=== PATIENT | male | born 1955 | race Caucasian/White ===

== ENCOUNTER 2022-09-15 18:04 | Outpatient (CLI) | payer MEDICARE, SELFPAY | END 2022-09-15 18:05 | disposition home or self-care (01) | LOC: AMB 09-16 13:51 | PROVIDERS: PCP Family Medicine; Visit Provider Family Medicine | DX: R42 Dizziness and giddiness (principal) | CPT/HCPCS: A0425; A0427 ==

== ENCOUNTER 2022-09-15 18:45 | Inpatient (IN) | payer MEDICARE, SELFPAY ==
[2022-09-15] VITALS (21 sets, daily range): BP systolic 137–189; BP diastolic 91–119; PULSE 64–75; RESP 16–18; TEMP 36.5; O2SAT 90–99; BMI 40.6; BMI 38.9
--- NOTE | 2022-09-15 18:54 | CRLHL7_ITS ---
For Patients: As a result of the Century Cures Act, medical imaging exams and procedure reports are released immediately into your electronic medical record. You may view this report before your referring provider. If you have questions, please contact your health care provider. INDICATION: Head injury from fall TECHNIQUE: CT Head without i.v. contrast. Coronal and sagittal reformats were obtained. COMPARISON: None FINDINGS: CSF space: Unremarkable for age. Brain: No evidence of mass, acute infarction or hemorrhage is seen. No mass-effect or midline shift is seen. Mild diffuse cortical atrophy is noted. The brain parenchyma is otherwise normal in appearance with preservation of the long-white matter junction. Calvarium: The visualized paranasal sinuses are well aerated. The mastoid air cells are clear. The visualized orbits are grossly unremarkable. The calvarium is unremarkable in appearance with no fractures identified. IMPRESSION: 1. No evidence of acute infarction, intracranial hemorrhage, or mass-effect seen. Please note that all CT scans at this facility use dose modulation, iterative reconstruction, and/or weight-based dosing when appropriate to reduce radiation dose to as low as reasonably achievable. Dictated by: Geovanny Arias MD @ 09/15/2022 20:31:38 (Electronically Signed)
--- NOTE | 2022-09-15 18:55 | CT_ITS ---
Patient: DENAE FAUSTIN Facility:?[facility] RIS Patient ID:?[id number] Site Patient ID:?[id number]. Site :?[id number] Study:?CT-Head Angio STROKE PROTOCOL W/95CC IOSVUE 370 NON-09/15/2022 8:33:45 PM Ordering Physician:Kendra Urbina Final Report: DATE: 09/15/2022 CLINICAL HISTORY: Patient with focal neurological deficits. TECHNIQUE: Standard helical CT image acquisition through the intracranial circulation following intravenous administration of contrast material with bolus tracking. Multiplanar reconstructed images were performed and interpreted. COMPARISON: CT same day. FINDINGS: There is no cerebral aneurysm or large vessel occlusion. The right internal carotid artery is normal. The right middle cerebral artery and its branches are normal. The right anterior cerebral artery and its branches are normal. The left internal carotid artery is normal. The left middle cerebral artery and its branches are normal. The left anterior cerebral artery and its branches are normal. The anterior communicating artery is well visualized and appears normal. The right vertebral artery and PICA are normal. The left vertebral artery and PICA are normal. The right vertebral artery is dominant. The basilar artery is patent and appears normal. The right posterior cerebral artery is normal. The left posterior cerebral artery is normal. The visualized venous structures are patent. IMPRESSION: Normal CT angiogram of the head without intracranial aneurysm or other neurovascular abnormality. Please note that all CT scans at this facility use dose modulation, iterative reconstruction, and/or weight-based dosing when appropriate to reduce radiation dose to as low as reasonably achievable. Dictated by Brendan Tidwell MD @ 09/16/2022 9:42:34 AM Signed by:?Brendan Tidwell MD @09/16/2022 9:42:34 AM (Electronic Signature)
[2022-09-15] MEDS: LORazepam 2 MG/ML inj 1 MG IVP (19:26)
[2022-09-15] MEDS: ONDANSETRON 2 MG/ML inj 4 MG IVP (19:26)
[2022-09-15 19:28] LABS: Basophils Percent Auto 0.1 % (0.0-3.0); Eosinophils Percent Auto 0.2 % (0.0-7.0); Hemoglobin* 15.7 gm/dL (13.5-17.5); Immature Granulocytes Pct Auto 0.3 %; Lymphocytes Percent Auto 10.3 % (20-44); Mean Corpuscular HGB Conc 33 gm/dL (32-36); Mean Corpuscular Hemoglobin 28 pg (26-34); Mean Corpuscular Volume 84 fL (80-100); Monocytes Percent Auto 5.6 % (0.0-11.0); Neutrophils Percent Auto 83.5 % (42.0-72.0); Platelet Count* 240 K/uL (140-440); RDW Coefficient of Variation % 14.5 % (11.5-15.5); Red Blood Count 5.69 m/uL (4.30-5.90)
[2022-09-15 19:40] LABS: Troponin, Point-of-Care* 0.01 ng/ml (0.01-0.04)
[2022-09-15 19:53] LABS: Slide Review Reflex No
[2022-09-15 19:58] LABS: Albumin* 4.5 g/dL (3.3-5.0); Chloride* 108 mmol/L (96-114); Sodium* 141 mmol/L (135-149)
[2022-09-15 19:59] LABS: Potassium* 3.7 mmol/L (3.6-5.1)
[2022-09-15 20:00] LABS: Creatinine* 0.7 mg/dL (0.5-1.5); Est. Creatinine Clearance* 63.21; Estimated Glomerular Filt Rate 102 ml/min; INR 0.99 (0.91-1.10); Prothrombin Time 13.7 Seconds
[2022-09-15 20:01] LABS: Alkaline Phosphatase* 77 U/L (40-150); Aspartate Amino Transferase* 28 U/L (12-35); Bilirubin Total* 1.4 mg/dL (0.1-1.5); Blood Urea Nitrogen* 13 mg/dL (7-30); Carbon Dioxide* 26 mmol/L (20-32); Partial Thromboplastin Time* 31 Seconds (23-33); Total Protein* 7.8 g/dL (6.0-8.3)
[2022-09-15 20:02] LABS: Alanine Aminotransferase* 37 U/L (4-50); Calcium* 9.1 mg/dL (8.4-10.6); Glucose* 135 mg/dL (60-115)
[2022-09-15 20:04] LABS: C Reactive Protein* 0.5 mg/dL (0.5-1.0)
[2022-09-15 20:08] LABS: PCR FLU A Negative PCR FLU A (Negative); PCR FLU B Negative PCR FLU B (Negative); PCR RSV Negative PCR RSV (Negative)
[2022-09-15 20:26] LABS: SARS PCR* Negative SARS-CoV-2 (Negative)
--- NOTE | 2022-09-15 20:27 | ED.GENADULT ---
HPI - General Adult General Date Seen: 09/15/22 Chief complaint: Dizziness/Vertigo Stated complaint: Dizzy Time Seen by Provider: 09/15/22 18:53 Source: patient History of Present Illness HPI narrative: Patient is a 66-year-old male who comes in by ambulance for re-evaluation of vertigo. He was seen in clinic earlier today and reports that he had a brain scan which he was told was normal. He says that he woke up yesterday morning feeling okay but shortly thereafter developed sudden onset of spinning/movement sensation. Did not have headache. He also says the left side of his face feels numb or funny, he is having difficulty swallowing. He denies any difficulty with numbness or weakness in his arms or legs, although he does say that when the paramedics wanted to get him to walk his legs ?would not work. This I think is referring to the fact that he was having difficulty walking. Medics related that he was listing to the side. They did not note any other findings on exam. Patient denies any history of previous stroke or heart attack. He does have a history of high cholesterol. He denies changes in his hearing or speech. Related Data Home Medications Medication Instructions Recorded Confirmed cholecalciferol (vitamin D3) 50 4,000 unit PO DAILY 09/15/22 09/15/22 mcg (2,000 unit) tablet (Vitamin D3) lovastatin 40 mg tablet 40 mg PO DAILY 09/15/22 09/15/22 magnesium 200 mg tablet 200 mg PO DAILY 09/15/22 09/15/22 multivitamin 1 tab PO DAILY 09/15/22 09/15/22 Allergies Allergy/AdvReac Type Severity Reaction Status Date / Time amoxicillin Allergy Verified 09/15/22 18:55 codeine Allergy Verified 09/15/22 18:55 Review of Systems Status of ROS: Reports: 10 or more systems reviewed and unremarkable except as noted in History and below Exam Narrative: Exam Narrative: Vital signs as noted above. In general, an alert, nontoxic male. He is lying in bed with his eyes closed. Head: Normocephalic, atraumatic. Eyes: Left pupil is 2 mm and reactive. Right pupil is 4 mm and reactive. There is a slight left ptosis. Conjunctivae are normal. Extraocular movements are full with significant leftward beating nystagmus at rest and with leftward gaze. Extinguishes with rightward gaze. ENT: Mucous membranes are moist. Throat is normal. Neck: Supple without lymphadenopathy. Nontender to palpation. No bruits. Heart: Regular rate and rhythm. No murmur or rub. Lungs: Clear bilaterally. No increased work of breathing, crackles or wheezes. Abdomen: Soft and nontender. No organomegaly. Extremities: Well perfused. No edema. No calf tenderness. Pulses intact. Neurologic: Patient is alert and oriented to person and place. Speech is fluent. Face is symmetric. Facial sensation is symmetric bilaterally. Moves all extremities equally. Strength is 5 of 5 in bilateral upper and lower extremities. Sensation is intact to light touch. Finger-nose testing shows some ataxia particularly with the left hand although he improves with practice. Affect: Flat. Skin: Warm and dry. Well perfused. Const: Vital Signs, click to edit/add: Vital Signs - 24 hr 09/15/22 19:07 09/15/22 19:25 09/15/22 19:44 Temperature 97.7 F Pulse Rate 73 Pulse Rate [Right Pulse Oximeter] 75 Respiratory Rate 18 Blood Pressure Blood Pressure [Ri ght Upper Arm] 189/119 H Pulse Oximetry 96 96 92 Oxygen Delivery Me thod Room Air 09/15/22 19:56 09/15/22 20:00 09/15/22 20:02 Temperature Pulse Rate 71 70 71 Pulse Rate [Right Pulse Oximeter] Respiratory Rate Blood Pressure 148/93 H 137/91 H Blood Pressure [Ri ght Upper Arm] Pulse Oximetry 92 92 90 Oxygen Delivery Me thod Course Course Hospital Course: I reviewed his [facility] chart that the nurse gave me, he did have a CT scan done which was read as negative. I am concerned about a central cause for his vertigo. While it is worse with movement, he has other exam findings which are concerning. CT angiogram is pending. White blood cell count is mildly elevated at 11.6, hemoglobin is normal. Platelets are 240,000. Metabolic panel is normal, blood sugars 135. LFTs normal. COVID, influenza, RSV negative. Point of care troponin is 0.01. An EKG by my review showed a normal sinus rhythm, ventricular rate of 70. No acute ST segment changes. CT angiogram of the head and neck is read by Radiology as showing a little bit of plaque in the proximal internal carotids bilaterally otherwise negative. Head CT again read as negative. Patient was markedly hypertensive on arrival, this has down without intervention. Did trying given an aspirin here but he is having difficulty swallowing and at this point he has not had an aspirin. I spoke with Dr. Adler at [facility] who was on-call for Neurology. My concern is for stroke at this point, I think mass or other structural abnormality is less likely. I think hemorrhages been adequately ruled out. I do think that peripheral vertigo is unlikely at this point with patient's other neurologic findings. I have recommended admission to the hospital. There are no beds available in the [facility] area including all [facility]. I do not have the ability to do an MRI tonight, and Dr. Adler thinks it is okay to wait until tomorrow morning. He did not feel that it was important to force the issue of the aspirin. Does not recommended any further medications at present. Patient has been stable. I gave him Zofran and Ativan, nystagmus is a little bit improved, nausea somewhat improved although he still feels fairly vertiginous. No change in neurologic symptoms otherwise. Vital Signs Vital signs: Initial Vital Signs Temperature 97.7 F 09/15/22 19:07 Temperature Source Temporal Artery Scan 09/15/22 19:07 Pulse Rate 75 09/15/22 19:07 Respiratory Rate 18 09/15/22 19:07 Blood Pressure 189/119 H 09/15/22 19:07 Blood Pressure Mean 142 09/15/22 19:07 Blood Pressure Position Sitting 09/15/22 19:07 Pulse Oximetry 96 09/15/22 19:07 Oxygen Delivery Method 09/15/22 19:07 Vital Signs Temperature 97.7 F 09/15/22 19:07 Pulse Rate 75 09/15/22 19:07 Respiratory Rate 18 09/15/22 19:07 Blood Pressure 189/119 H 09/15/22 19:07 Pulse Oximetry 96 09/15/22 19:07 Oxygen Delivery Method 09/15/22 19:07 Temperature 97.7 F 09/15/22 19:07 Pulse Rate 71 09/15/22 20:02 Respiratory Rate 18 09/15/22 19:07 Blood Pressure 137/91 H 09/15/22 20:02 Pulse Oximetry 90 09/15/22 20:02 Oxygen Delivery Method 09/15/22 19:07 Medical Decision Making Lab Data Labs: Lab Results 09/15/22 09/15/22 09/15/22 Range/Units 19:20 19:20 19:20 WBC 11.60 H (4.50-11.00) K/uL RBC 5.69 (4.30-5.90) m/uL Hgb 15.7 (13.5-17.5) gm/dL Hct 48.0 (37.0-53.0) % MCV 84 (80-100) fL MCH 28 (26-34) pg MCHC 33 (32-36) gm/dL RDW Coeff of Junaid 14.5 (11.5-15.5) % Plt Count 240 (140-440) K/uL Neut % (Auto) 83.5 H (42.0-72.0) % Lymph % (Auto) 10.3 L (20-44) % [place] % (Auto) 5.6 (0.0-11.0) % Eos % (Auto) 0.2 (0.0-7.0) % Baso % (Auto) 0.1 (0.0-3.0) % Neut # (Auto) 9.70 H (1.7-7.0) K/uL Lymph # (Auto) 1.20 (0.90-2.90) K/uL [place] # (Auto) 0.60 (0.00-0.90) K/UL Eos # (Auto) 0.00 (0.00-0.50) K/uL Baso # (Auto) 0.00 (0.00-0.30) K/uL INR (0.91-1.10) APTT (23-33) Seconds Sodium 141 (135-149) mmol/L Potassium 3.7 (3.6-5.1) mmol/L Chloride 108 (96-114) mmol/L Carbon Dioxide 26 (20-32) mmol/L BUN 13 (7-30) mg/dL Creatinine 0.7 (0.5-1.5) mg/dL Estimated Creat Clear 63.21 Estimated GFR 102 ml/min Glucose 135 H (60-115) mg/dL Calcium 9.1 (8.4-10.6) mg/dL Total Bilirubin 1.4 (0.1-1.5) mg/dL Direct Bilirubin 0.0 (0.0-0.5) mg/dL AST 28 (12-35) U/L ALT 37 (4-50) U/L Alkaline Phosphatase 77 (40-150) U/L C-Reactive Protein 0.5 (0.5-1.0) mg/dL Total Protein 7.8 (6.0-8.3) g/dL Albumin 4.5 (3.3-5.0) g/dL SARS-CoV-2 (PCR) Negative SARS-CoV-2 (Negative) Influenza Type A (PCR) Negative PCR FLU A (Negative) Influenza Type B (PCR) Negative PCR FLU B (Negative) RSV (PCR) Negative PCR RSV (Negative) POC Troponin I (0.01-0.04) ng/ml 09/15/22 09/15/22 Range/Units 19:20 19:20 WBC (4.50-11.00) K/uL RBC (4.30-5.90) m/uL Hgb (13.5-17.5) gm/dL Hct (37.0-53.0) % MCV (80-100) fL MCH (26-34) pg MCHC (32-36) gm/dL RDW Coeff of Junaid (11.5-15.5) % Plt Count (140-440) K/uL Neut % (Auto) (42.0-72.0) % Lymph % (Auto) (20-44) % [place] % (Auto) (0.0-11.0) % Eos % (Auto) (0.0-7.0) % Baso % (Auto) (0.0-3.0) % Neut # (Auto) (1.7-7.0) K/uL Lymph # (Auto) (0.90-2.90) K/uL [place] # (Auto) (0.00-0.90) K/UL Eos # (Auto) (0.00-0.50) K/uL Baso # (Auto) (0.00-0.30) K/uL INR 0.99 (0.91-1.10) APTT 31 (23-33) Seconds Sodium (135-149) mmol/L Potassium (3.6-5.1) mmol/L Chloride (96-114) mmol/L Carbon Dioxide (20-32) mmol/L BUN (7-30) mg/dL Creatinine (0.5-1.5) mg/dL Estimated Creat Clear Estimated GFR ml/min Glucose (60-115) mg/dL Calcium (8.4-10.6) mg/dL Total Bilirubin (0.1-1.5) mg/dL Direct Bilirubin (0.0-0.5) mg/dL AST (12-35) U/L ALT (4-50) U/L Alkaline Phosphatase (40-150) U/L C-Reactive Protein (0.5-1.0) mg/dL Total Protein (6.0-8.3) g/dL Albumin (3.3-5.0) g/dL SARS-CoV-2 (PCR) (Negative) Influenza Type A (PCR) (Negative) Influenza Type B (PCR) (Negative) RSV (PCR) (Negative) POC Troponin I 0.01 (0.01-0.04) ng/ml Discharge Plan Discharge Prescriptions: No Action cholecalciferol (vitamin D3) [Vitamin D3] 50 mcg (2,000 unit) tablet 4,000 unit PO DAILY lovastatin 40 mg tablet 40 mg PO DAILY magnesium 200 mg tablet 200 mg PO DAILY multivitamin Tablet 1 tab PO DAILY Follow Up/Referrals: Davey Davis MD [Primary Care Provider] -
--- NOTE | 2022-09-15 21:45 | ED.NURSE ---
Heads up given to HS
--- NOTE | 2022-09-15 21:46 | W.PC.EDHO ---
Primary Language: Preferred Language: Orientation Status: [x] Alert & Oriented [] Slight Confusion [] Known Dx Dementia Transfers By: [x] Assist of 1 [] Assist of 2 [] Lift Active Medications Discontinued Medications Generic Name Dose Route Start Last Admin Trade Name Freq PRN Reason Stop Dose Admin Lorazepam 1 mg 09/15/22 18:55 09/15/22 19:26 Lorazepam 2 Mg/Ml Inj IVP 09/15/22 18:56 1 mg ONCE ONE Administration Ondansetron HCl 4 mg 09/15/22 18:55 09/15/22 19:26 Ondansetron 2 Mg/Ml Inj IVP 09/15/22 18:56 4 mg ONCE ONE Administration Description of Symptoms ED Triage Present Problem pt here for dizziness since yesterday am, was seen Description at [facility] by Apple Pimentel today and head CT done, pt was told it was negative ED Triage Date of Onset of 09/14/22 Symptoms Female History Patient IV Insertion/Site Date of IV Line Insertion [ 09/15/22 Left Antecubital] Oxygen Administration Pulse Oximetry 90 Pulse Oximetry 92 Pulse Oximetry 92 Pulse Oximetry 92 Pulse Oximetry 96 Pulse Oximetry 96 Oxygen Delivery Method Room Air Cardiac Monitoring EKG Method 12 Lead
[2022-09-15] MEDS: SODIUM CHLORIDE 0.9 % (FLUSH) 10 ML SYRINGE 5 ML IVF (23:49)
[2022-09-16] VITALS (8 sets, daily range): BP systolic 128–157; BP diastolic 76–118; PULSE 61–78; RESP 16–18; TEMP 36.1–36.8; O2SAT 94–99
[2022-09-16 00:09] LABS: Appearance Urine Clear (Clear); Bilirubin Urine Negative (Negative); Blood Urine Trace-intact (Negative); Color Urine Yellow (Yellow); Glucose Urine Negative (Negative); Ketones Urine Negative (Negative); Leukocyte Esterase Urine Negative (Negative); Nitrite Urine Negative (Negative); Protein Urine Negative (Negative); Urobilinogen Urine 0.2 (0.2-1.0)
--- NOTE | 2022-09-16 00:22 | P.IMCN_ITS ---
Date of Consult Consult date: 09/16/22 Primary Care Provider: Davey Davis MD Consult Narrative Narrative: Travis Wiley Hospitalist ADMISSION SUPPORT NOTE eHospitalist was contacted by Dr. Cam with request of admission support. Chief complaint: Unsteady gait with left facial numbness HPI: The patient reports that Wednesday morning while he was drinking a beer he suddenly felt funny like I had drunk 5-6 bottles of beer. He started having difficulty walking. His stomach then got upset and started having dry heaves. His nausea persisted since that time. Because of his symptoms he went into a clinic that evaluated him, perform CT scan of head which was negative and the patient was discharged. Wednesday he woke up from a nap and reports that everything was spinning around. He then noted that the left side of his face felt numb and he had difficulty swallowing. He reports that the room was just spinning around. Because of the persistence of his symptoms he decided to come in for evaluation. Per report Case discussed with neurology who recommends stroke work-up with MRI etc. Review of systems other mention above is negative Home Medications/Pertinent Medical History/Pertinent Social History: Reviewed see EMR for details [facility] Social History Highest level of school completed/degree received: high school graduate Smoking Status: Never smoker Do you use any of these nicotine containing products: None Second hand tobacco smoke exposure: No How often do you have a drink containing alcohol: 2-3 times a week Alcohol type: beer and hard liquor Alcohol type details: kendall How many standard drinks containing alcohol do you have on a typical day: 3 or 4 How often do you have six or more drinks on one occasion: Less than monthly AUDIT-C Alcohol total score: 5 Non-prescribed substance use: denies use Caffeine: Yes (occ coffee) service: No Meds Home Medications and Allergies Home Medications Medication Instructions Recorded Confirmed Type cholecalciferol (vitamin D3) 50 4,000 unit PO DAILY 09/15/22 09/15/22 History mcg (2,000 unit) tablet (Vitamin D3) lovastatin 40 mg tablet 40 mg PO HS 09/15/22 09/16/22 History magnesium 200 mg tablet 200 mg PO DAILY 09/15/22 09/15/22 History multivitamin 1 tab PO DAILY 09/15/22 09/15/22 History Allergies Allergy/AdvReac Type Severity Reaction Status Date / Time amoxicillin Allergy Verified 09/15/22 18:55 codeine Allergy Verified 09/15/22 18:55 Exam Narrative: Exam Narrative: Exam (performed via interactive video with assistance of bedside nurse): General: Alert, cooperative, no acute distress HEENT: Pupils reported irregular in size with right pupil appearing larger based on bedside nurse evaluation, oral mucosa pink and moist without erythema, left eye ptosis Lungs: Clear to auscultation bilaterally without crackle or wheeze CV: Regular rate and rhythm without loud murmur rub or gallop Ext: No pitting edema noted Skin: No rashes, bruises or lesions appreciated on gross visualization of exposed skin Neuro: Alert, oriented x 3. CN III -VII, XI, XII grossly intact except left ptosis, left facial numbness, and left facial droop, moves all extremities without any significant focal deficit appreciated by nurse, horizontal nystagmus noted with leftward beating Const: Vital Signs, click to edit/add: Vital Signs - 24 hr 09/15/22 19:07 09/15/22 19:25 09/15/22 19:44 Temperature 97.7 F Pulse Rate 73 Pulse Rate [Pulse Oximeter] Pulse Rate [Right Pulse Oximeter] 75 Respiratory Rate 18 Blood Pressure Blood Pressure [Ri ght Arm] Blood Pressure [Ri ght Upper Arm] 189/119 H Pulse Oximetry 96 96 92 Oxygen Delivery Me thod Room Air 09/15/22 19:56 09/15/22 20:00 09/15/22 20:02 Temperature Pulse Rate 71 70 71 Pulse Rate [Pulse Oximeter] Pulse Rate [Right Pulse Oximeter] Respiratory Rate Blood Pressure 148/93 H 137/91 H Blood Pressure [Ri ght Arm] Blood Pressure [Ri ght Upper Arm] Pulse Oximetry 92 92 90 Oxygen Delivery Me thod 09/15/22 23:04 09/15/22 20:03 09/15/22 20:22 Temperature Pulse Rate 71 73 Pulse Rate [Pulse Oximeter] 68 Pulse Rate [Right Pulse Oximeter] Respiratory Rate 16 Blood Pressure Blood Pressure [Ri ght Arm] 162/111 H Blood Pressure [Ri ght Upper Arm] Pulse Oximetry 99 92 97 Oxygen Delivery Me thod Room Air 09/15/22 20:32 09/15/22 20:40 09/15/22 21:00 Temperature Pulse Rate 74 67 65 Pulse Rate [Pulse Oximeter] Pulse Rate [Right Pulse Oximeter] Respiratory Rate Blood Pressure 168/105 H Blood Pressure [Ri ght Arm] Blood Pressure [Ri ght Upper Arm] Pulse Oximetry 91 98 95 Oxygen Delivery Me thod 09/15/22 21:02 09/15/22 21:20 09/15/22 21:32 Temperature Pulse Rate 66 66 67 Pulse Rate [Pulse Oximeter] Pulse Rate [Right Pulse Oximeter] Respiratory Rate Blood Pressure 161/107 H 165/97 H Blood Pressure [Ri ght Arm] Blood Pressure [Ri ght Upper Arm] Pulse Oximetry 95 96 98 Oxygen Delivery Me thod 09/15/22 21:40 09/15/22 22:00 09/15/22 22:02 Temperature Pulse Rate 69 66 68 Pulse Rate [Pulse Oximeter] Pulse Rate [Right Pulse Oximeter] Respiratory Rate Blood Pressure 168/107 H Blood Pressure [Ri ght Arm] Blood Pressure [Ri ght Upper Arm] Pulse Oximetry 97 97 96 Oxygen Delivery Nd thod 09/15/22 22:20 09/15/22 22:32 09/15/22 22:40 Temperature Pulse Rate 64 68 66 Pulse Rate [Pulse Oximeter] Pulse Rate [Right Pulse Oximeter] Respiratory Rate Blood Pressure 153/106 H Blood Pressure [Ri ght Arm] Blood Pressure [Ri ght Upper Arm] Pulse Oximetry 97 96 97 Oxygen Delivery Me thod Labs Labs: Short CBC 09/15/22 Range/Units 19:20 WBC 11.60 H (4.50-11.00) K/uL Hgb 15.7 (13.5-17.5) gm/dL Hct 48.0 (37.0-53.0) % Plt Count 240 (140-440) K/uL BMP 09/15/22 19:20 Sodium 141 Potassium 3.7 Chloride 108 Carbon Dioxide 26 BUN 13 Creatinine 0.7 Glucose 135 H Calcium 9.1 Liver Function 09/15/22 Range/Units 19:20 Total Bilirubin 1.4 (0.1-1.5) mg/dL Direct Bilirubin 0.0 (0.0-0.5) mg/dL AST 28 (12-35) U/L ALT 37 (4-50) U/L Alkaline Phosphatase 77 (40-150) U/L Albumin 4.5 (3.3-5.0) g/dL Urine 09/15/22 Range/Units 23:31 Urine Color Yellow (Yellow) Urine Appearance Clear (Clear) Urine pH 7.0 (5.0-8.5) Ur Specific [place] 1.010 (1.000-1.030) Urine Protein Negative (Negative) Urine Glucose (UA) Negative (Negative) Assessment and Plan Assessment and plan (1) Suspected cerebrovascular accident: Status: Acute Plan Recent lab/CT scan of head: Reviewed see EMR for details EKG: Per my interpretation showed normal sinus rhythm Assessment and Plan: 1. Concern for stroke versus TIA-rectal aspirin as the patient reports difficulty swallowing. MRI of brain. 2D echo with bubble. PT and OT evaluation. 2. Hypertension-allow permissive hypertension given concern for stroke 3. Leukocytosis-May be secondary to stress response. No signs or symptoms of active infection. Monitor 4. Hyperglycemia-check TSH 5. DVT prophylaxis-SCDs 6. CODE STATUS full code discussed with patient Chart review was performed as well as evaluation of the patient via video. Thank you for involving ehospitalist. Please contact [phone] if further assistance is needed.
[2022-09-16 00:40] LABS: RBC Urine 0-2 (0-2); WBC Urine 0-2 (0-5)
[2022-09-16] MEDS: ASPIRIN 300 MG SUPP PR (01:21)
[2022-09-16] MEDS: 0.9 % SODIUM CHLORIDE 1000 ml 1,000 ML 75 ML IV (01:21)
--- NOTE | 2022-09-16 05:38 | PC.NURSE ---
Pt arrived to floor approx 2350, unable to stand or walk. upon arrival pt c/o L facial numbness, unable to swallow. L pupil 2mm brisk reaction to light, R pupil 4mm brisk reaction to light, bilateral nystagmus and asymmetrical smile (weak on the L side). equal bilateral strength to upper and lower extremities. During 0300 vitals, pt smile symmetrical, stated numbness to L face is getting better and pt able to swallow a little better then earlier. Pt still unable to stand, states it feels like there's nothing there. Pt is able to feel nurse touching his feet. Pt slept well during night between cares/vitals. uses urinal with help. per nurse discretion pt NPO during night due to difficulty swallowing.
--- NOTE | 2022-09-16 07:00 | CRLHL7_ITS ---
For Patients: As a result of the Century Cures Act, medical imaging exams and procedure reports are released immediately into your electronic medical record. You may view this report before your referring provider. If you have questions, please contact your health care provider. INDICATION: Left leg weakness. Dizziness. TECHNIQUE: Brain MRI without contrast. The following sequences were obtained: Sagittal T1 weighted sequence. DWI and ADC mapping sequences. Axial FLAIR and SELVIN T2 weighted sequences. Susceptibility or GRE sequence. COMPARISON: Head CT from 09/15/2022. FINDINGS: Multiple contiguous or nearly contiguous foci of diffusion restriction/FLAIR hyperintensity within the left inferior cerebellar hemisphere, vermis, brachium pontis and dorsal lateral medulla, consistent with sites of recent ischemia, likely late acute to early subacute in age. The infarcts involve the left PICA distribution. No evidence of recent ischemia elsewhere within the brain. No evidence of acute or chronic intracranial blood products. Scattered FLAIR hyperintensities within the supratentorial white matter, typical for chronic microvascular ischemic change. No mass effect or herniation. No hydrocephalus or extra-axial collections. The pituitary gland, parasellar structures and optic chiasm are normal. All the major intracranial vascular structures demonstrate normal flow-related signal. The orbital contents are normal. No calvarial or skull base marrow replacing process. No obstructive sinus disease. No extracranial soft tissue findings. IMPRESSION: 1. 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 No recent ischemia and other vascular territories. 2. No intracranial hemorrhage. 3. Mild chronic microvascular ischemic changes within the supratentorial white matter. Dictated by Christos Esqueda MD @ 09/16/2022 12:44:07 PM (Electronically Signed)
[2022-09-16 07:25] LABS: Basophils Percent Auto 0.1 % (0.0-3.0); Eosinophils Percent Auto 0.4 % (0.0-7.0); Hematocrit 47.3 % (37.0-53.0); Immature Granulocytes Pct Auto 0.3 %; Lymphocytes Percent Auto 16.6 % (20-44); Mean Corpuscular HGB Conc 32 gm/dL (32-36); Mean Corpuscular Hemoglobin 27 pg (26-34); Mean Corpuscular Volume 86 fL (80-100); Monocytes Percent Auto 6.2 % (0.0-11.0); Neutrophils Percent Auto 76.4 % (42.0-72.0); Platelet Count* 221 K/uL (140-440); RDW Coefficient of Variation % 14.7 % (11.5-15.5)
[2022-09-16 07:35] LABS: Slide Review Reflex No
[2022-09-16 07:45] LABS: Albumin* 4.2 g/dL (3.3-5.0); Chloride* 109 mmol/L (96-114); Potassium* 4.1 mmol/L (3.6-5.1); Sodium* 140 mmol/L (135-149)
[2022-09-16 07:47] LABS: Bilirubin Total* 1.4 mg/dL (0.1-1.5); Creatinine* 0.6 mg/dL (0.5-1.5); Est. Creatinine Clearance* 65.57; Estimated Glomerular Filt Rate 106 ml/min
[2022-09-16 07:48] LABS: Alanine Aminotransferase* 34 U/L (4-50); Alkaline Phosphatase* 65 U/L (40-150); Aspartate Amino Transferase* 35 U/L (12-35); Blood Urea Nitrogen* 13 mg/dL (7-30); Calcium* 8.8 mg/dL (8.4-10.6); Carbon Dioxide* 25 mmol/L (20-32); Glucose* 101 mg/dL (60-115); Total Protein* 7.2 g/dL (6.0-8.3)
[2022-09-16 10:04] LABS: Hemoglobin A1C* 6.34 % (0-5.6)
[2022-09-16] MEDS: ACETAMINOPHEN 325 MG TABLET 650 MG PO (14:43)
--- NOTE | 2022-09-16 14:53 | PC.NURSE ---
BP's remain elevated at this time and MD is aware. Extremities all equal in strength but patient unable to bear weight on left leg when standing. Left pupil 2mm and Right pupil 4mm. Both pupils brisk and reactive to light. Swallow study completed and patient able to swallow without any difficulty. Speech therapist states there is no need to modify diet at this time. At end of shift patient was reporting headache and Tylenol administered.
--- NOTE | 2022-09-16 17:42 | PM.IMHP1 ---
Hospitalist- H&P: HPI History of Present Illness Time Seen by Provider: 09:00 Date Seen: 09/16/22 Chief complaint: Dizzy Narrative: Hawk Martinez is a 66 year old man who presented with a 2 day history of vertigo, facial numbness, ataxia. Had transient dysphagia which has since resolved. Profound vertigo on presentation. CT of head without contrast unremarkable. CT angiogram of head and neck essentially unremarkable as well. Admitted for further assessment and interventions as warranted. MRI of head obtained today demonstrating acute or early subacute infarctions involving the left posterior inferior cerebellar artery (PICA) territory, including the inferior cerebellar hemisphere, firmness, brachium pontis, and medulla. Also noted were mild chronic microvascular ischemic changes within the supratentorial white matter. Review of Systems Status of ROS: Reports: 10 or more systems reviewed and unremarkable except as noted in History and below Narrative: He is retired. Lives at home with his . Just last week he was climbing the roof to take some of the snow off. Usually has no limitations in efforts. [facility] Social History Highest level of school completed/degree received: high school graduate Smoking Status: Never smoker Do you use any of these nicotine containing products: None Second hand tobacco smoke exposure: No How often do you have a drink containing alcohol: 2-3 times a week Alcohol type: beer and hard liquor Alcohol type details: whiskey How many standard drinks containing alcohol do you have on a typical day: 3 or 4 How often do you have six or more drinks on one occasion: Less than monthly AUDIT-C Alcohol total score: 5 Non-prescribed substance use: denies use Caffeine: Yes (occ coffee) service: No Meds Home Medications and Allergies Home Medications Medication Instructions Recorded Confirmed Type cholecalciferol (vitamin D3) 50 4,000 unit PO DAILY 09/15/22 09/15/22 History mcg (2,000 unit) tablet (Vitamin D3) lovastatin 40 mg tablet 40 mg PO HS 09/15/22 09/16/22 History magnesium 200 mg tablet 200 mg PO DAILY 09/15/22 09/15/22 History multivitamin 1 tab PO DAILY 09/15/22 09/15/22 History Allergies Allergy/AdvReac Type Severity Reaction Status Date / Time amoxicillin Allergy Verified 09/15/22 18:55 codeine Allergy Verified 09/15/22 18:55 Exam Narrative: Exam Narrative: I examine him in his bed. He appears comfortable in his bed. Alert, oriented to self, place, time, situation. Friendly, articulate, cooperative. Clear speech. No obvious dysarthria. Able to swallow his saliva and clear liquids. Intermittent nystagmus multidirectional. Over reaches with left hand with finger to nose efforts. Similarly with left lower extremity. Strength testing is equal bilaterally however. Mild droop of eyelid on left. Lungs are clear to auscultation. Heart tones with regular rhythm. Abdomen with active bowel sounds, soft, nontender. Skin is warm, dry, intact. Const: Vital Signs, click to edit/add: Vital Signs - 24 hr 09/15/22 19:07 09/15/22 19:25 09/15/22 19:44 Temperature 97.7 F Pulse Rate 73 Pulse Rate [Pulse Oximeter] Pulse Rate [Right Pulse Oximeter] 75 Respiratory Rate 18 Blood Pressure Blood Pressure [Ri ght Arm] Blood Pressure [Ri ght Upper Arm] 189/119 H Pulse Oximetry 96 96 92 Oxygen Delivery Me thod Room Air 09/15/22 19:56 09/15/22 20:00 09/15/22 20:02 Temperature Pulse Rate 71 70 71 Pulse Rate [Pulse Oximeter] Pulse Rate [Right Pulse Oximeter] Respiratory Rate Blood Pressure 148/93 H 137/91 H Blood Pressure [Ri ght Arm] Blood Pressure [Ri ght Upper Arm] Pulse Oximetry 92 92 90 Oxygen Delivery Me thod 09/15/22 23:04 09/15/22 20:03 09/15/22 20:22 Temperature Pulse Rate 71 73 Pulse Rate [Pulse Oximeter] 68 Pulse Rate [Right Pulse Oximeter] Respiratory Rate 16 Blood Pressure Blood Pressure [Ri ght Arm] 162/111 H Blood Pressure [Ri ght Upper Arm] Pulse Oximetry 99 92 97 Oxygen Delivery Me thod Room Air 09/15/22 20:32 09/15/22 20:40 09/15/22 21:00 Temperature Pulse Rate 74 67 65 Pulse Rate [Pulse Oximeter] Pulse Rate [Right Pulse Oximeter] Respiratory Rate Blood Pressure 168/105 H Blood Pressure [Ri ght Arm] Blood Pressure [Ri ght Upper Arm] Pulse Oximetry 91 98 95 [facility] 21:02 09/15/22 21:20 09/15/22 21:32 Temperature Pulse Rate 66 66 67 Pulse Rate [Pulse Oximeter] Pulse Rate [Right Pulse Oximeter] Respiratory Rate Blood Pressure 161/107 H 165/97 H Blood Pressure [Ri ght Arm] Blood Pressure [Ri ght Upper Arm] Pulse Oximetry 95 96 98 Oxygen Delivery [facility] 09/15/22 21:40 09/15/22 22:00 09/15/22 22:02 Temperature Pulse Rate 69 66 68 Pulse Rate [Pulse Oximeter] Pulse Rate [Right Pulse Oximeter] Respiratory Rate Blood Pressure 168/107 H Blood Pressure [Ri ght Arm] Blood Pressure [Ri ght Upper Arm] Pulse Oximetry 97 97 96 Oxygen Delivery [facility] 09/15/22 22:20 09/15/22 22:32 09/15/22 22:40 Temperature Pulse Rate 64 68 66 Pulse Rate [Pulse Oximeter] Pulse Rate [Right Pulse Oximeter] Respiratory Rate Blood Pressure 153/106 H Blood Pressure [Ri ght Arm] Blood Pressure [Ri ght Upper Arm] Pulse Oximetry 97 96 97 Oxygen Delivery [facility] 09/16/22 03:00 09/16/22 03:13 09/16/22 07:31 Temperature 97.2 F L Pulse Rate 61 78 Pulse Rate [Pulse Oximeter] 71 Pulse Rate [Right Pulse Oximeter] Respiratory Rate 16 Blood Pressure Blood Pressure [Ri ght Arm] 157/94 H Blood Pressure [Ri ght Upper Arm] Pulse Oximetry 94 Oxygen Delivery [facility] Room Air 09/16/22 07:30 09/16/22 07:30 09/16/22 12:15 Temperature 97.4 F L 97.0 F L Pulse Rate Pulse Rate [Pulse Oximeter] 73 73 75 Pulse Rate [Right Pulse Oximeter] Respiratory Rate 18 16 18 Blood Pressure Blood Pressure [Ri ght Arm] 148/100 H 135/118 H Blood Pressure [Ri ght Upper Arm] Pulse Oximetry 99 99 Oxygen Delivery [facility] Room Air Room Air Hospitalist - H&P: Result Labs Labs: Short CBC 09/15/22 09/16/22 Range/Units 19:20 06:37 WBC 11.60 H 11.30 H (4.50-11.00) K/uL Hgb 15.7 15.0 (13.5-17.5) gm/dL Hct 48.0 47.3 (37.0-53.0) % Plt Count 240 221 (140-440) K/uL BMP 09/15/22 09/16/22 19:20 06:37 Sodium 141 140 Potassium 3.7 4.1 Chloride 108 109 Carbon Dioxide 26 25 BUN 13 13 Creatinine 0.7 0.6 Glucose 135 H 101 Calcium 9.1 8.8 Liver Function 09/15/22 09/16/22 Range/Units 19:20 06:37 Total Bilirubin 1.4 1.4 (0.1-1.5) mg/dL Direct Bilirubin 0.0 (0.0-0.5) mg/dL AST 28 35 (12-35) U/L ALT 37 34 (4-50) U/L Alkaline Phosphatase 77 65 (40-150) U/L Albumin 4.5 4.2 (3.3-5.0) g/dL Urine 09/15/22 Range/Units 23:31 Urine Color Yellow (Yellow) Urine Appearance Clear (Clear) Urine pH 7.0 (5.0-8.5) Ur Specific [place] 1.010 (1.000-1.030) Urine Protein Negative (Negative) Urine Glucose (UA) Negative (Negative) Imaging MR Brain: Attestation: I have reviewed the pertinent imaging results. Radiologist's impression: 1. Multiple recent, likely late acute to early subacute infarcts involving the left PICA territory, including the inferior cerebellar hemisphere, vermis, brachium pontis, and medulla. No recent ischemia in other vascular territories. 2. No intracranial hemorrhage. 3. Mild chronic microvascular ischemic changes within the supratentorial white matter. Assessment and Plan Assessment and plan (1) Posterior inferior cerebellar artery syndrome: Problem comment: Presented too late for stroke thrombolytics intervention. Status: Acute Assessment and Plan: 1. Reviewed with patient and . 2. Continue work with physical therapy and occupational therapy 3. I believe this patient would be an excellent patient for in patient physical medicine rehabilitation efforts. I have asked our medical social worker to initiate efforts to try to place the patient in such a program if at all possible in the very near future. 4. For now I will allow for permissive hypertension. 5. His lovastatin and changed to atorvastatin 40 mg at bedtime. 6. Aspirin 325 mg once daily at this juncture. 7. Speech pathology evaluate his swallowing and found it to be adequate at this time. 8. Answered patient's and his 's questions to their satisfaction. 9. They are agreeable with above stated plans and recommendations.
--- NOTE | 2022-09-16 19:55 | PC.NURSE ---
shift note: pt BP 103/59 P=66 rt arm @ 1800. Rechecked BP @ 1830 to Rt arm 128/76 p=64. Dr. Aguilar notified. Pt states SEE from this afternoon gone. neurocheck still showing rt pupil (3)larger than lt(2). pt continues to have nystagmus.speech clear. pt oriented x3. IV x2 intact to lt arm.
[2022-09-16] MEDS: ASPIRIN EC 325 MG TABLET PO (21:36)
[2022-09-16] MEDS: ATORVASTATIN CALCIUM 40 MG TABLET PO (21:36)
[2022-09-16] MEDS: SODIUM CHLORIDE 0.9 % (FLUSH) 10 ML SYRINGE 5 ML IVF (21:36)
--- NOTE | 2022-09-16 23:58 | PC.SOCIAL ---
Discharge planning- Phone call to [facility] at [phone]. Left voicemail informing that this worker will be faxing a new referral for acute rehab services. Faxed referral to [facility] at [phone]. Social Work will follow up as necessary.
[2022-09-17] VITALS (7 sets, daily range): BP systolic 134–157; BP diastolic 81–110; PULSE 75–83; RESP 16–18; TEMP 36.5–36.7; O2SAT 92–95
--- NOTE | 2022-09-17 06:42 | PC.NURSE ---
23-07: pleasant and cooperative. Uses urinal. did not get out of bed this shift. BPs 145/90, 157/96, 145/87. HR 70s. Right eye 3mm, left eye 2mm.
[2022-09-17 07:23] LABS: Hematocrit 44.9 % (37.0-53.0); Hemoglobin* 14.6 gm/dL (13.5-17.5); Mean Corpuscular HGB Conc 33 gm/dL (32-36); Mean Corpuscular Hemoglobin 28 pg (26-34); Mean Corpuscular Volume 85 fL (80-100); Platelet Count* 222 K/uL (140-440); Red Blood Count 5.28 m/uL (4.30-5.90); White Blood Count* 9.58 K/uL (4.50-11.00)
[2022-09-17 07:26] LABS: Slide Review Reflex No
[2022-09-17] MEDS: ACETAMINOPHEN 325 MG TABLET 650 MG PO (08:47)
[2022-09-17] MEDS: SODIUM CHLORIDE 0.9 % (FLUSH) 10 ML SYRINGE 5 ML IVF ×2 (08:48→21:19)
--- NOTE | 2022-09-17 14:57 | P.IMPN_ITS ---
Progress Note: A&P Assessment and plan (1) Posterior inferior cerebellar artery syndrome: Problem details: Presented too late for stroke thrombolytics intervention. Status: Acute Assessment and Plan: 1. Continue with physical therapy, occupational therapy. 2. Tolerating oral intake without any difficulties. Plan 1. Reviewed above with patient and his . 2. Answered their questions. 3. Continue with efforts to reach out to inpatient rehabilitation site for possible transfer and continued rehabilitation efforts. Time Spent With Patient Total time spent: 20 minutes Subjective Time Seen by Provider: 10:00 Date Seen: 09/17/22 Interval history: Hospital day 2. 66-year-old man presented to the hospital with the 2 day history of vertigo, a taxia, sense of numbness. MRI of the head performed yesterday demonstrated infarction in the left posterior inferior cerebellar artery distribution. Patient's symptom complex gradually improving. Has posterior inferior cerebellar artery syndrome. Awaiting assessment for possible inpatient rehabilitation. Exam Narrative: Exam Narrative: No acute distress. Alert and oriented to self, place, time, situation. Friendly, articulate, cooperative. Mood and affect are congruent. Lungs are clear to auscultation. Heart tones with regular rhythm. Abdomen is obese with active bowel sounds, soft, nontender. Much less nystagmus. Still has incoordination of the left side upper extremity more so than lower extremity. Better able to stand and even take a few steps today. Const: Vital Signs, click to edit/add: Vital Signs - 24 hr 09/16/22 15:00 09/16/22 19:00 09/16/22 23:00 Temperature 98.2 F 98 F Pulse Rate [Pulse Oximeter] 64 65 73 Respiratory Rate 16 18 18 Blood Pressure [Ri ght Arm] 128/76 130/88 Pulse Oximetry 94 Oxygen Delivery Me thod Room Air Room Air 09/16/22 23:00 09/17/22 03:00 09/17/22 06:22 Temperature 97.9 F 97.7 F Pulse Rate [Pulse Oximeter] 73 75 Respiratory Rate 18 18 Blood Pressure [Ri ght Arm] 145/90 H 157/96 H 145/87 H Pulse Oximetry 94 95 Oxygen Delivery Me thod Room Air Room Air 09/17/22 07:00 09/17/22 11:00 Temperature 98.0 F 98.0 F Pulse Rate [Pulse Oximeter] 83 82 Respiratory Rate 18 16 Blood Pressure [Ri ght Arm] 134/81 136/87 Pulse Oximetry 94 92 Oxygen Delivery Me thod Room Air Room Air Documenting provider has reviewed patient's vital signs: yes Labs Labs: Laboratory Results - last 24 hr 09/17/22 09/17/22 06:58 06:58 WBC 9.58 RBC 5.28 Hgb 14.6 Hct 44.9 MCV 85 MCH 28 MCHC 33 Plt Count 222 TSH 4.940 H
--- NOTE | 2022-09-17 15:59 | PC.SOCIAL ---
Discharge planning- Phone call to Vitaliy Edwards at [phone]. Left a voicemail to follow up on referral. Received a phone call from Lor ([phone]) at [facility] regarding referral for pt. Lor is requesting more information including OT evaluation, updated therapy notes from today, updated MD progress note, and MRI report to confirm that pt had a stroke. Discussed if there was openings and Lor informed that there will be openings and they are assessing pt. Charge nurse faxed MRI report to [facility]iy Edwards at [phone]. Social Work faxed other requested information to [facility]iy Edwards. Phone call to pt in pt's room and there was no answer. Phone call to pt's , Nimisha, at [phone]. There was no answer. Left a voicemail requesting a phone call back to discuss discharge plans. Social Work will continue to follow up as necessary.
--- NOTE | 2022-09-17 16:35 | PC.NURSE ---
PATIENT PLEASANT AND COOPERATIVE, ALERT AND ORIENTED, DECLINING PAIN ALTHOUGH THIS MORNING THAT STATED I HAVE A SINUS HEADACHE, HAPPENS ALL THE TIME THIS YEAR, PRN TYLENOL GIVEN WITH RELIEF, AT THIS TIME PATIENT DID EXPRESS FEELING DIZZY WELL, AFTER TYLENOL THE DIZZINESS ALSO WENT AWAY, ABLE TO WALK IN HALLWAY WITH ASSIST OF 2 WALKER AND BELT, FAMILY PRESENT THIS MORNING AND VERY SUPPORTIVE, TOLERATING REGULAR DIET WITH NO SWALLOWING ISSUES.
[2022-09-17 20:48] LABS: Cholesterol* 162 mg/dL (90-199); Triglycerides* 163 mg/dL (40-149)
[2022-09-17 20:49] LABS: HDL Cholesterol* 33 mg/dL (>=40); LDL Cholesterol Calculated 96 mg/dL (<100)
[2022-09-17] MEDS: ASPIRIN EC 325 MG TABLET PO (21:18)
[2022-09-17] MEDS: ATORVASTATIN CALCIUM 40 MG TABLET PO (21:18)
[2022-09-18] VITALS (7 sets, daily range): BP systolic 136–162; BP diastolic 84–107; PULSE 68–89; RESP 16–19; TEMP 36.4–36.8; O2SAT 93–96
--- NOTE | 2022-09-18 06:26 | PC.NURSE ---
Status [id number] Alert and oriented. Pleasant and cooperative. Denies pain. BP remains elevated but stable. Neuro checks intact. Remains on room air. Using urinal in bed independently. Encouraged to shift weight in bed. Pt observed resting in bed between cares.
--- NOTE | 2022-09-18 10:50 | PC.SOCIAL ---
Addendum entered by SONYA Wolf 09/18/22 15:05: Received a phone call from Suellen Penny, Utilization Review Nurse at [facility] rehab at [phone]. Suellen Penny informed that she submitted to pt's insurance for authorization. Ashlee informed that [facility] is requesting therapy documentation. [facility] phone number is [phone] and [facility]'s fax is [phone]. Case number that has to be on cover sheet is Case # [id number]. Phone call to [facility]. [facility] is requesting Speech Evaluation, OT evaluation and progress notes, and PT evaluation and progress notes. Faxed all requested documentation to [facility] at [phone]. Phone call to Suellen Penny (UR Nurse, [facility]) and left voicemail informing that all documentation has been faxed to [facility]. Social Work will follow up as necessary. Addendum entered by SONYA Wolf 09/18/22 12:59: Phone call to Lor ([phone]) at [facility]. Lor is requesting updated MD IDRIS progress note, most recent vitals, and updated PT/OT notes. Faxed requested documentation to [phone]. Lor informed that [facility] hospitalist may have to do a peer to peer review at some point over the weekend. Lor requests that [facility] fax updated MD progress note, vitals, and therapy notes on Wednesday (09-20-2022) to [phone]. Lor informed that if insurance authorizes pt may be able to admit on Wednesday or Wednesday. Provided update to charge nurse, Kerry, and she will ensure that the information is faxed on Wednesday. Original Note: Discharge planning- phone call to Lor ([phone]) at [facility] following up on status of referral. Lor informs that she has received all of the requested documentation. Lor states that they can look at getting the authorization from pt's insurance but before doing that they would like pt's family to confirm that they can take pt home directly from their facility at discharge after 2-3 weeks and want to be sure that family is able to provide the necessary care. Lor informs that typically it is a 2 step program and sometimes pt's go to TCU after the acute rehab stay, however, pt's insurance ([facility]) does not allow a TCU stay after acute rehab. This worker will check with family and pt and call Lor back. Met with pt in room and discussed SNF vs. acute rehab. Pt desires to go to acute rehab to get the most rehab as possible to get back as close as he can to baseline. Phone call to pt's , Nimisha, and discussed acute rehab and aftercare. Pt's informs that she is aware that pt will go home after rehab and is able to provide care to pt. states that herself and pt have discussed and they want pt to go to acute rehab. This worker informed that this worker will call [facility] back and inform them so they can get the authorization from insurance. Informed that social work will keep pt and pt's updated. Phone call to Lor at [facility]. Informed her that pt and pt's would like to move forward and are agreeable that when acute rehab is completed they will have no issues with pt going directly home. Lor will work to get the authorization from insurance. Lor states that the authorization can sometimes take 1-2 days and occasionally the insurance will reach out to the hospital to get medical records because [facility] is unable to share medical records. Social Work will follow up as necessary.
[2022-09-18] MEDS: AMLODIPINE 5 MG TABLET PO (12:49)
--- NOTE | 2022-09-18 13:40 | PC.NURSE ---
PATIENT PLEASANT AND COOPERATIVE, ALERT AND ORIENTED, UP WITH A1 WALKER AND BELT TOLERATING FAIRLY, MD UPDATED ON PATIENTS BPS SEE NEW ORDERS, DECLINING PAIN, SHOWERED DONE TODAY, TOLERATING REGULAR DIET NO NAUSEA.
--- NOTE | 2022-09-18 13:57 | PM.IMPN1 ---
Progress Note: A&P Assessment and plan (1) Posterior inferior cerebellar artery syndrome: Problem details: Presented too late for stroke thrombolytics intervention. Status: Acute Assessment and Plan: 1. I have been allowing for permissive hypertension heretofore. 2. I will initiate amlodipine 5 mg once daily today. May need dose adjustments. Consider adding TRENTON-inhibitor or angiotensin receptor sherwin agent if needed for additional pressure control. 3. Patient and continue to express desire to proceed with plan for inpatient rehabilitation for all possible. We are awaiting his health insurance authorization for this. Should his health insurance decline the request will need to consider alternative rehabilitation options for him. Time Spent With Patient Total time spent: 20 minutes Subjective Time Seen by Provider: 11:30 Date Seen: 09/18/22 Interval history: Hospital day 3. 66-year-old man presented to the hospital with the 2 day history of vertigo, ataxia, sense of left facial numbness. MRI of the head performed on hospital day 2 demonstrated infarction in the left posterior inferior cerebellar artery distribution. Patient's symptom complex are gradually improving. Has posterior inferior cerebellar artery syndrome. Working closely with our physical and occupational therapy staff. Now only requiring assist of 1 for various activities including transfers, ambulation, and some of his ADLs. Vertigo in great measure resolving. Actually able to stand now with ataxia improving. Left facial numbness much improved. Awaiting authorization from insurance company for inpatient rehabilitation. Exam Narrative: Exam Narrative: No acute distress. Appears comfortable. Vision and hearing grossly normal. No longer has spontaneous nystagmus. Swelling without any difficulties, liquids and solids. Strength in upper and lower extremities are symmetric still. Still has over reaching on the left compared to the right and decreased rapid alternating movement on the left compared to the right. Lungs remain clear to auscultation. Heart tones with regular rhythm, normal S1-S2. Abdomen with active bowel sounds, soft, nontender. Extremities without edema. Assist of 1 for transfers and gait at this juncture - this is a vast improvement from previously. Const: Vital Signs, click to edit/add: Vital Signs - 24 hr 09/17/22 15:00 09/17/22 21:13 09/17/22 23:00 Temperature 97.8 F 97.9 F Pulse Rate [Pulse Oximeter] 77 75 75 Respiratory Rate 16 16 16 Blood Pressure [Ri ght Arm] 152/110 H 152/107 H Pulse Oximetry 94 95 Oxygen Delivery Me thod Room Air Room Air 09/18/22 00:30 09/18/22 04:15 09/18/22 07:00 Temperature 97.6 F 97.5 F L 98.0 F Pulse Rate [Pulse Oximeter] 68 68 74 Respiratory Rate 16 16 19 Blood Pressure [Ri ght Arm] 162/100 H 159/100 H 160/107 H Pulse Oximetry 96 96 94 Oxygen Delivery Me thod Room Air Room Air Room Air 09/18/22 11:00 Temperature 97.7 F Pulse Rate [Pulse Oximeter] 87 Respiratory Rate 16 Blood Pressure [Ri ght Arm] 136/84 Pulse Oximetry 93 Oxygen Delivery Me thod Room Air Documenting provider has reviewed patient's vital signs: yes Labs Labs: Laboratory Results - last 24 hr 09/17/22 06:58 Triglycerides 163 H Cholesterol 162 LDL Cholesterol, Calc 96 HDL Cholesterol 33 L
[2022-09-18] MEDS: SODIUM CHLORIDE 0.9 % (FLUSH) 10 ML SYRINGE 5 ML IVF (20:26)
[2022-09-18] MEDS: ATORVASTATIN CALCIUM 40 MG TABLET PO (20:26)
[2022-09-18] MEDS: ASPIRIN EC 325 MG TABLET PO (20:26)
--- NOTE | 2022-09-18 22:35 | PC.NURSE ---
Shift [id number]- Patient pleasant and cooperative. He is alert and oriented. No facial droop, pupils are reactive, and he denies headache or dizziness. Appetite is intact and he is voiding. He denies pain.
[2022-09-19 03:30] VITALS: BP 137/86; PULSE 73; RESP 20; TEMP 36.2; O2SAT 95
[2022-09-19] MEDS: ACETAMINOPHEN 325 MG TABLET 650 MG PO (03:35)
--- NOTE | 2022-09-19 05:22 | PC.NURSE ---
[id number]: Patient talkative and pleasant. Face symmetrical, PERRL, strong and equal hand grasps. PRN Tylenol administered for sinus headache. Denies N/V/dizziness. Denies CP. A1/walker/GB.
[2022-09-19 07:00] VITALS: BP 148/82; PULSE 81; RESP 18; TEMP 36.2; O2SAT 95
[2022-09-19] MEDS: AMLODIPINE 5 MG TABLET PO (08:32)
[2022-09-19] MEDS: MAGNESIUM OXIDE 400 MG TABLET PO (08:32)
[2022-09-19] MEDS: SODIUM CHLORIDE 0.9 % (FLUSH) 10 ML SYRINGE 5 ML IVF ×2 (08:33→20:43)
[2022-09-19 11:00] VITALS: BP 136/85; PULSE 93; RESP 16; TEMP 36.2; O2SAT 93
[2022-09-19 15:00] VITALS: BP 150/90; PULSE 79; RESP 16; TEMP 36.6; O2SAT 95
--- NOTE | 2022-09-19 18:13 | PC.NURSE ---
End of Shift: Patient pleasant and cooperative. Afebrile. Denies pain. Up to chair and bathroom with 1 assist, walker and gait belt. Went for walk in hallway x3 this shift. Denies any lightheadedness or dizziness. Tolerating regular diet with no nausea.
--- NOTE | 2022-09-19 19:11 | PM.IMPN1 ---
Progress Note: A&P Assessment and plan (1) Posterior inferior cerebellar artery syndrome: Problem details: Patient with severe stroke symptoms not significantly improved. Patient outside the window for intervention on presentation but is clinically improved with conservative treatment. Treatment with aspirin and high-dose atorvastatin. Gradually address hypertension. Recommend acute rehab. Status: Acute Plan Continue inpatient rehab pending possible acute rehab placement Time Spent With Patient Total time spent: Total time spent today is 35 minutes, 25 minutes in coordination of care discussing with patient and other providers ongoing management of stroke. Subjective Date Seen: 09/19/22 Interval history: 66-year-old male seen in followup posterior stroke. Patient reports feeling much better in the last couple days. At the time of admission, 4 days ago, patient had profound vertigo, left-sided facial numbness and lower extremity weakness and very poor balance. All of that is improved though he reports still some troubles with lower extremity weakness and balance. He has a move the to ambulate with a walker and standby assistance now. Vertigo and numbness have resolved. Overall he reports feeling much better. Exam Narrative: Exam Narrative: He is alert and appears in no distress. Speech is normal and articulate. There is no facial asymmetry. Extraocular movements are full. Visual sandhu are intact. Pupils are equal round reactive. Oropharynx is normal tongue is midline. Intact facial sensation. Respirations are clear to auscultation. Cardiovascular: S1, S2, regular rate and rhythm. Qvmmzu-[id number]-qcuvop is accurate though a little better on the left than the right. Strength in upper extremities is full and symmetric. Strength in lower extremities is also full and symmetric. Const: Vital Signs, click to edit/add: Vital Signs - 24 hr 09/18/22 19:49 09/18/22 23:35 09/19/22 03:30 Temperature 98.2 F 97.6 F 97.2 F L Pulse Rate [Pulse Oximeter] 89 81 73 Respiratory Rate 18 18 20 Blood Pressure [Ri ght Arm] 161/100 H 152/102 H 137/86 Pulse Oximetry 94 94 95 Oxygen Delivery Me thod Room Air Room Air Room Air 09/19/22 07:00 09/19/22 07:00 09/19/22 11:00 Temperature 97.1 F L 97.1 F L Pulse Rate [Pulse Oximeter] 81 81 93 Respiratory Rate 18 18 16 Blood Pressure [Ri ght Arm] 148/82 H 136/85 Pulse Oximetry 95 93 Oxygen Delivery Me thod Room Air Room Air 09/19/22 15:00 09/19/22 15:00 Temperature 97.8 F Pulse Rate [Pulse Oximeter] 79 79 Respiratory Rate 16 16 [facility] 150/90 H Pulse Oximetry 95 Oxygen Delivery Me thod Room Air Documenting provider has reviewed patient's vital signs: yes
[2022-09-19 20:38] VITALS: BP 136/96; PULSE 80; RESP 16; TEMP 36.4; O2SAT 96
[2022-09-19] MEDS: DOCUSATE SODIUM 100 MG CAPSULE PO (20:43)
[2022-09-19] MEDS: ATORVASTATIN CALCIUM 40 MG TABLET PO (20:43)
[2022-09-19] MEDS: ASPIRIN EC 325 MG TABLET PO (20:43)
[2022-09-19 23:23] VITALS: BP 134/93; PULSE 74; RESP 18; TEMP 36.7; O2SAT 95
[2022-09-19] MEDS: MELATONIN 3 MG TABLET PO (23:27)
[2022-09-20 04:02] VITALS: BP 132/81; PULSE 72; RESP 18; TEMP 36.4; O2SAT 96
--- NOTE | 2022-09-20 05:24 | PC.NURSE ---
[id number]: Patient pleasant and cooperative. Denies pain. Facial symmetry, PERRL, and equal hand grasps. A1/walker/GB. Walked x1 in j[place], tolerated well with occasional sluggish L. leg. Patient reports trouble sleeping. Melatonin administered with minimal results.
[2022-09-20 07:00] VITALS: BP 132/83; PULSE 76; RESP 16; TEMP 36.3; O2SAT 96
[2022-09-20] MEDS: DOCUSATE SODIUM 100 MG CAPSULE PO (08:54)
[2022-09-20] MEDS: MAGNESIUM OXIDE 400 MG TABLET PO (08:54)
[2022-09-20] MEDS: AMLODIPINE 5 MG TABLET PO (08:54)
[2022-09-20 11:00] VITALS: BP 132/79; PULSE 78; RESP 16; TEMP 36.3; O2SAT 95
[2022-09-20 15:00] VITALS: BP 139/83; PULSE 88; RESP 18; TEMP 36.1; O2SAT 95
--- NOTE | 2022-09-20 16:23 | PM.IMPN1 ---
Progress Note: A&P Assessment and plan (1) Posterior inferior cerebellar artery syndrome: Problem details: Patient with severe stroke symptoms not significantly improved. Patient outside the window for intervention on presentation but is clinically improved with conservative treatment. Treatment with aspirin and high-dose atorvastatin. Gradually address hypertension. Discharge tomorrow to acute rehab versus home with outpatient rehab. Status: Acute Time Spent With Patient Total time spent: Total time spent today is 25 minutes, 20 minutes in coordination care discussing with patient and other providers ongoing management of residual stroke deficits and rehab plan Subjective Date Seen: 09/20/22 Interval history: 66-year-old male seen in followup of stroke with associated poor balance and weakness. Patient continues to feel like he is improving. He is able to walk further and feels steady on his feet. Feels like his weakness is improved and his balance is improved. Therapy agrees with this assessment. He has no other concerns today. Exam Narrative: Exam Narrative: He is alert and appears in no distress. Rapid alternating movements, strength testing in all 4 extremities is normal and unchanged from yesterday. Const: Vital Signs, click to edit/add: Vital Signs - 24 hr 09/19/22 20:38 09/19/22 23:23 09/20/22 04:02 Temperature 97.6 F 98.0 F 97.5 F L Pulse Rate [Pulse Oximeter] 80 74 72 Respiratory Rate 16 18 18 Blood Pressure [Le ft Arm] Blood Pressure [Ri ght Arm] 136/96 H 134/93 H 132/81 Pulse Oximetry 96 95 96 Oxygen Delivery Me thod Room Air Room Air Room Air 09/20/22 07:00 09/20/22 07:00 09/20/22 11:00 Temperature 97.3 F L 97.4 F L Pulse Rate [Pulse Oximeter] 76 76 78 Respiratory Rate 16 16 16 Blood Pressure [Le ft Arm] 132/83 132/79 Blood Pressure [Ri ght Arm] Pulse Oximetry 96 95 Oxygen Delivery Me thod Room Air Room Air Documenting provider has reviewed patient's vital signs: yes
--- NOTE | 2022-09-20 18:52 | PC.NURSE ---
End of Shift: Patient pleasant and cooperative. Afebrile. Denies pain. Up to chair and bathroom with SBA and walker. Went for several walks in the hallway. Tolerating regular diet with no nausea.
[2022-09-20 19:00] VITALS: BP 151/92; PULSE 89; RESP 18; TEMP 36.4; O2SAT 95
[2022-09-20] MEDS: ASPIRIN EC 325 MG TABLET PO (21:16)
[2022-09-20] MEDS: ATORVASTATIN CALCIUM 40 MG TABLET PO (21:16)
[2022-09-20 23:00] VITALS: BP 135/87; PULSE 88; RESP 18; TEMP 36.6; O2SAT 95
[2022-09-21 03:00] VITALS: BP 136/96; PULSE 89; RESP 18; TEMP 36.3; O2SAT 95
--- NOTE | 2022-09-21 05:17 | PC.NURSE ---
Shift note: Pt has shown significant improvement in condition. Have clear speech, able to swallow considerably well, CMS intact and denied any pain. Require one recycling assistant with ambulation, walker and GB r/t weakness in LE. Vitally stable.
[2022-09-21 07:00] VITALS: BP 149/95; PULSE 89; RESP 18; TEMP 36.2; O2SAT 98
[2022-09-21] MEDS: SODIUM CHLORIDE 0.9 % (FLUSH) 10 ML SYRINGE 5 ML IVF (09:33)
[2022-09-21] MEDS: MAGNESIUM OXIDE 400 MG TABLET PO (09:33)
[2022-09-21] MEDS: AMLODIPINE 5 MG TABLET PO (09:33)
--- NOTE | 2022-09-21 09:36 | PM.DS1 ---
DS: Providers Provider Date Seen: 09/21/22 Date of admission: 09/17/22 11:01 Primary care physician: Davey Davis MD Admitting Clinician: Jose Curry MD Date of Discharge: 09/21/22 DS: Diagnosis Discharge Diagnosis (1) Posterior inferior cerebellar artery syndrome: Status: Acute Problem details: 66-year-old male admitted with vertigo, left facial numbness, left-sided weakness, and ataxia. MRI showed a stroke in the left PICA distribution. Marked clinical improvement over the last week. Treated with aspirin and atorvastatin DS: Summary Hospital Course Hospital Course: 66-year-old male admitted to the hospital with with onset of vertigo, ataxia, left facial numbness, left-sided weakness. MRI showed a left PICA distribution stroke. Patient's presentation was outside of the time window for intravascular intervention or thrombolytics treatment. He was treated with aspirin and atorvastatin. Over the subsequent several days in a hospital he has had marked improvement in his symptoms. His vertigo has resolved. His left facial numbness is resolved. He has minimal weakness. He still has some ataxia and balance difficulties. Status at Discharge Cognitive/behavioral status at discharge: At baseline Functional status at discharge: uses cane/walker Overall status at discharge: patient is progressing back to baseline Time Spent with Patient Time attestation: Total time spent providing and/or coordinating discharge services: Time spent: Greater than 30 minutes Exam Narrative: Exam Narrative: He is alert and in no distress. No obvious facial asymmetry. No numbness. Extraocular movements are full. Visual sandhu intact. No nystagmus. No obvious focal weakness on strength testing. Xnmsxh-kvua-qsezsz is normal. Rapid finger movements normal Const: Vital Signs, click to edit/add: Vital Signs - 24 hr 09/20/22 11:00 09/20/22 15:00 09/20/22 15:00 Temperature 97.4 F L 97.0 F L Pulse Rate [Pulse Oximeter] 78 88 88 Respiratory Rate 16 18 18 Blood Pressure [Le ft Arm] 132/79 139/83 Pulse Oximetry 95 95 Oxygen Delivery Me thod Room Air Room Air 09/20/22 19:00 09/20/22 23:00 09/21/22 03:00 Temperature 97.6 F 98 F 97.3 F L Pulse Rate [Pulse Oximeter] 89 88 89 Respiratory Rate 18 18 18 Blood Pressure [Le ft Arm] 151/92 H 135/87 136/96 H Pulse Oximetry 95 95 95 Oxygen Delivery Me thod Room Air Room Air Room Air Documenting provider has reviewed patient's vital signs: yes DS: Data Imaging MRI - head: Radiologist's impression: [address] [address] Diagnostic Imaging Report Patient: Hawk Martinez MR#: [id number] : 1955 Acct:[id number] Loc: [id number] Service Date: 09/16/[address]: Jose Curry M.D. Ordering Physician: Yue Fletcher MD Date of Service: 09/16/22 Procedure(s): MR head/brain wo con Accession Number(s): [id number] cc: Yue Fletcher MD; Davey Davis M.D.~ For Patients:? As a result of the Cures Act, medical imaging exams and procedure reports are released immediately into your electronic medical record.? You may view this report before your referring provider.? If you have questions, please contact your health care provider. INDICATION: Left leg weakness. Dizziness. TECHNIQUE: Brain MRI without contrast. The following sequences were obtained: Sagittal T1 weighted sequence. DWI and ADC mapping sequences. Axial FLAIR and SELVIN T2 weighted sequences. Susceptibility or GRE sequence. COMPARISON: Head CT from 09/15/2022. FINDINGS: Multiple contiguous or nearly contiguous foci of diffusion restriction/FLAIR hyperintensity within the left inferior cerebellar hemisphere, vermis, brachium pontis and dorsal lateral medulla, consistent with sites of recent ischemia, likely late acute to early subacute in age. The infarcts involve the left PICA distribution. No evidence of recent ischemia elsewhere within the brain. No evidence of acute or chronic intracranial blood products. Scattered FLAIR hyperintensities within the supratentorial white matter, typical for chronic microvascular ischemic change. No mass effect or herniation. No hydrocephalus or extra-axial collections. The pituitary gland, parasellar structures and optic chiasm are normal. All the major intracranial vascular structures demonstrate normal flow-related signal. The orbital contents are normal. No calvarial or skull base marrow replacing process. No obstructive sinus disease. No extracranial soft tissue findings. IMPRESSION: 1. 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 No recent ischemia and other vascular territories. 2. No intracranial hemorrhage. 3. Mild chronic microvascular ischemic changes within the supratentorial white matter. Dictated by Christos Esqueda MD @ 09/16/2022 12:44:07 PM Discharge Plan Discharge Disposition: [facility] Date of Admission: 09/17/22 11:01 [facility]: 66-year-old male admitted to the hospital with with onset of vertigo, ataxia, left facial numbness, left-sided weakness. MRI showed a left PICA distribution stroke. Patient's presentation was outside of the time window for intravascular intervention or thrombolytics treatment. He was treated with aspirin and atorvastatin. Over the subsequent several days in a hospital he has had marked improvement in his symptoms. His vertigo has resolved. His left facial numbness is resolved. He has minimal weakness. He still has some ataxia and balance difficulties. Oxygen: No Urinary Catheter: No
--- NOTE | 2022-09-21 09:37 | PC.SOCIAL ---
Discharge Planning: Pt has been accepted for admission to [facility] for further rehab. Pt is agreeable to plan, transport has been set through EMS for 11:30, and Lor pillai has been notified of time. Fax is being sent to [phone] of d/c summary, 3-day MAR and orders. No further SW needs at this time.
--- NOTE | 2022-09-21 12:50 | PC.NURSE ---
Shift note: Pt alert and oriented x4, speech is clear, able to swallow considerably well, CMS intact and denied any pain. Require one financial legal assistant with ambulation, walker and GB r/t weakness in LE. Vitally stable. [facility] Spouse picked up belongings from room and will transport to new facility. Nurse to Nurse given to Paige FOSTER. Orders sent with patient.
== END 2022-09-21 11:20 | DRG 65 ==
LOC: ED 20:05 → MEDSURG 22:53
PROVIDERS: Internal Medicine; Admitting Provider Hospitalist; Emergency Provider Emergency Medicine; PCP Family Medicine; Visit Provider Hospitalist
DX: I63.9 Cerebral infarction, unspecified (principal); G81.94 Hemiplegia, unspecified affecting left nondominant side; G46.4 Cerebellar stroke syndrome; R13.10 Dysphagia, unspecified; R26.0 Ataxic gait; R29.810 Facial weakness; R42 Dizziness and giddiness; R20.0 Anesthesia of skin; I10 Essential (primary) hypertension; R73.9 Hyperglycemia, unspecified
CPT/HCPCS: 36415; 70450; 70496; 70498; 70551; 80048; 80053; 80061; 80076; 81003; 81015; 83036; 84443; 84484; 85025; 85027; 85610; 85730; 86140; 87502; 87634; 87635; 92610; 93005; 94761; 97110; 97112; 97116; 97162; 97165; 97530; 97535; 99284; G0378; A9270; J2060; J2405; J7030; Q9967

== ENCOUNTER 2022-09-21 11:09 | Outpatient (CLI) | payer MEDICARE, SELFPAY | END 2022-09-21 11:10 | disposition home or self-care (01) | LOC: AMB 09-23 12:15 | PROVIDERS: PCP Family Medicine; Visit Provider Family Medicine | DX: I63.9 Cerebral infarction, unspecified (principal) | CPT/HCPCS: A0425; A0428 ==